=== PATIENT | male | born 1985 ===

== ENCOUNTER 2018-02-26 12:01 | Outpatient (CLI) | payer BC | END 2018-02-26 12:02 | disposition home or self-care (01) | LOC: C.DIABED 12:01 ==

== ENCOUNTER 2018-03-26 10:48 | Outpatient (CLI) | payer BC | END 2018-03-26 10:49 | disposition home or self-care (01) | LOC: C.DIABED 10:48 | DX: E66.9 Obesity, unspecified (principal) ==

== ENCOUNTER 2018-04-30 12:22 | Outpatient (CLI) | payer BC | END 2018-04-30 12:23 | disposition home or self-care (01) | LOC: C.DIABED 12:22 | DX: E66.9 Obesity, unspecified (principal) ==

== ENCOUNTER 2018-06-18 12:13 | Outpatient (CLI) | payer BC | END 2018-06-18 12:14 | disposition home or self-care (01) | LOC: C.DIABED 12:13 ==